=== PATIENT | female | born 1940 | race Caucasian/White ===

== ENCOUNTER 2024-03-01 14:25 | Inpatient (IN) | payer MEDICARE, OTHER ==
[~2024-03-01] VITALS: Ht 158.8 cm; Wt 76.7 kg
[2024-03-01 15:10] LABS: BASOPHILS % (AUTO) 0.5 % (0.0-2.0); EOSINOPHILS # (AUTO) 0.1 K/uL (0.0-0.7); EOSINOPHILS % (AUTO) 1.6 % (0.0-6.0); HEMATOCRIT 36 % (33-45); HEMOGLOBIN 11.7 g/dL (11.5-14.8); LYMPHOCYTES # (AUTO) 1.9 K/uL (0.8-4.8); LYMPHOCYTES % (AUTO) 26.6 % (20.0-44.0); MEAN CORPUSCULAR HEMOGLOBIN 30 PG (26.0-33.0); MEAN CORPUSCULAR HGB CONC 33 g/dl (31.0-36.0); MEAN CORPUSCULAR VOLUME 91 fL (82-100); MONOCYTES # (AUTO) 0.6 K/uL (0.1-1.30); MONOCYTES % (AUTO) 7.7 % (2.0-12.0); NEUTROPHILS # (AUTO) 4.6 K/uL (1.8-8.9); NEUTROPHILS % (AUTO) 63.6 % (43.0-81.0); PLATELET COUNT (AUTO) 327 K/uL (150-450); RED BLOOD CELL COUNT(AUTO) 3.93 MIL/uL (4.0-5.2); RED CELL DISTRIBUTION WIDTH 15.7 % (11.5-15.0); WHITE BLOOD COUNT (AUTO) 7.3 K/uL (4.3-11.0)
[2024-03-01 15:18] LABS: CALCIUM, SERUM 9.8 mg/dL (8.5-10.1); CARBON DIOXIDE 25 mmol/L (21-32); CHLORIDE 101 mmol/L (98-107); CREATININE 1.1 mg/dL (0.6-1.3); GLUCOSE 172 mg/dL (74-106); POTASSIUM 3.9 mmol/L (3.5-5.1); SODIUM SERUM 134 mmol/L (136-145); UREA NITROGEN, BLOOD 15 mg/dL (7-18)
[2024-03-01] MEDS: ASPIRIN EC 325 MG TABLET.DR PO ONE (16:44)
[2024-03-01] MEDS ORDERED: MORPHINE SULFATE INJ 4 MG/ML DISP.SYRIN ONE (16:58)
[2024-03-01] MEDS ORDERED: ONDANSETRON HCL/PF 4 MG/2 ML VIAL ONE (16:58)
[2024-03-01] MEDS: MORPHINE SULFATE INJ 2 MG/ML DISP.SYRIN IV ONE (17:00)
[2024-03-01] MEDS: ONDANSETRON HCL/PF 4 MG/2 ML VIAL IVP ONE (17:00)
[2024-03-01] MEDS ORDERED: AZEL6DRO5 EACHEYE (17:28)
[2024-03-01] MEDS ORDERED: METF-440 PO (17:28)
[2024-03-01] MEDS ORDERED: MEMA10TA56 PO (17:28)
[2024-03-01] MEDS ORDERED: MULT-1168 PO (17:28)
[2024-03-01] MEDS ORDERED: TIZA-180 PO (17:28)
[2024-03-01] MEDS ORDERED: METO5TAB2 PO (17:28)
[2024-03-01] MEDS ORDERED: OMEP40CA21 PO (17:28)
[2024-03-01] MEDS ORDERED: LOSA25TA27 PO (17:28)
[2024-03-01] MEDS ORDERED: GABA300C PO (17:28)
[2024-03-01] MEDS ORDERED: METO25TA4 PO (17:28)
[2024-03-01] MEDS ORDERED: HYDR-3976 PO (17:28)
[2024-03-01] MEDS ORDERED: SUCR1ORA6 PO (17:28)
[2024-03-01] MEDS ORDERED: DIPH1TAB PO (17:28)
[2024-03-01] MEDS ORDERED: DOCU250C14 PO (17:28)
[2024-03-01] MEDS ORDERED: DONE5TAB34 PO (17:28)
[2024-03-01] MEDS ORDERED: ASCO100058 PO (17:28)
[2024-03-01] MEDS ORDERED: CETI10TA14 PO (17:28)
[2024-03-01] MEDS ORDERED: OMEG-178 PO (17:28)
[2024-03-01] MEDS ORDERED: HYDR-4076 PO (17:28)
[2024-03-01] MEDS ORDERED: FURO20TA4 PO (17:28)
[2024-03-01] MEDS ORDERED: DEXTROSE 50%-WATER 50 ML DISP.SYRIN IV PRN (18:30)
[2024-03-01] MEDS ORDERED: MAGNESIUM HYDROXIDE 30 ML UDC PO PRN (18:30)
[2024-03-01] MEDS ORDERED: Z GUARD REMEDY 4 OZ OINT TP PRN (18:30)
[2024-03-01] MEDS: ENOXAPARIN SODIUM 40 MG/0.4 ML DISP.SYRIN SQ SCH (18:30)
[2024-03-01 21:10] VITALS: BP 140/89; TEMP 97.5; O2SAT 95
[2024-03-01] MEDS: DONEPEZIL 5 MG TABLET PO SCH (21:54)
[2024-03-01] MEDS: GABAPENTIN 300 MG CAPSULE PO SCH (21:56)
[2024-03-01] MEDS: BLOOD SUGAR DIAGNOSTIC 1 EACH STRIP IN SCH (22:05)
[2024-03-01] MEDS: ONDANSETRON HCL/PF 4 MG/2 ML VIAL IVP PRN (22:09)
[2024-03-01] MEDS: HYDROCODONE/APAP 5/325MG TABLET PO PRN (22:41)
[2024-03-01] MEDS: INSULIN REGULAR, HUMAN 100 UNIT/ML 3 ML VIAL SQ PRN (22:49)
[2024-03-02] VITALS (8 sets, daily range): BP systolic 114–162; BP diastolic 55–73; TEMP 97.7–98.4; O2SAT 95–99
[2024-03-02] MEDS: ACETAMINOPHEN 325 MG TABLET PO PRN (00:36)
[2024-03-02 07:18] LABS: BASOPHILS # (AUTO) 0.1 K/uL (0.0-0.2); BASOPHILS % (AUTO) 0.7 % (0.0-2.0); EOSINOPHILS # (AUTO) 0.2 K/uL (0.0-0.7); EOSINOPHILS % (AUTO) 2.5 % (0.0-6.0); HEMATOCRIT 33 % (33-45); HEMOGLOBIN 10.8 g/dL (11.5-14.8); LYMPHOCYTES # (AUTO) 3.4 K/uL (0.8-4.8); LYMPHOCYTES % (AUTO) 41.9 % (20.0-44.0); MEAN CORPUSCULAR HEMOGLOBIN 31 PG (26.0-33.0); MEAN CORPUSCULAR HGB CONC 33 g/dl (31.0-36.0); MEAN CORPUSCULAR VOLUME 92 fL (82-100); NEUTROPHILS # (AUTO) 3.4 K/uL (1.8-8.9); NEUTROPHILS % (AUTO) 42.9 % (43.0-81.0); PLATELET COUNT (AUTO) 287 K/uL (150-450); RED BLOOD CELL COUNT(AUTO) 3.53 MIL/uL (4.0-5.2); RED CELL DISTRIBUTION WIDTH 15.8 % (11.5-15.0)
[2024-03-02 07:48] LABS: CALCIUM, SERUM 8.9 mg/dL (8.5-10.1); CARBON DIOXIDE 24 mmol/L (21-32); CHLORIDE 101 mmol/L (98-107); CREATININE 1.3 mg/dL (0.6-1.3); GLUCOSE 137 mg/dL (74-106); MAGNESIUM 2.3 mg/dL (1.8-2.4); PHOSPHORUS 3.8 mg/dL (2.5-4.9); POTASSIUM 3.9 mmol/L (3.5-5.1); SODIUM SERUM 138 mmol/L (136-145); UREA NITROGEN, BLOOD 16 mg/dL (7-18)
[2024-03-02] MEDS: SUCRALFATE 1 G TABLET PO SCH (08:46)
[2024-03-02] MEDS: ASCORBIC ACID 500 MG TABLET PO SCH (08:46)
[2024-03-02] MEDS: PANTOPRAZOLE 40 MG TABLET.DR PO SCH (08:46)
[2024-03-02] MEDS: MULTIVIT W/MINERALS 1 TAB TABLET PO SCH (08:46)
[2024-03-02] MEDS: DOCUSATE SODIUM 250 MG CAPSULE PO SCH (08:46)
[2024-03-02] MEDS: ASPIRIN EC 81 MG TABLET.DR PO SCH (08:47)
[2024-03-02] MEDS: LOSARTAN POTASSIUM 25 MG TABLET PO SCH (08:47)
[2024-03-02] MEDS: MEMANTINE HCL 5 MG TABLET PO SCH (08:47)
[2024-03-02] MEDS: METOPROLOL SUCCINATE 25 MG TAB.SR.24H PO SCH (08:48)
[2024-03-02] MEDS ORDERED: Medication Not On Formulary EA (Azelastine Hcl 1 DROP) EACHEYE SCH (09:00)
[2024-03-02] MEDS ORDERED: FUROSEMIDE 20 MG TABLET PO SCH (09:00)
[2024-03-02 11:36] LABS: CHOLESTEROL 318 mg/dL (<200); HDL CHOLESTEROL 47 mg/dL (40-60); LDL 201 mg/dL (0-99); TRIGLYCERIDES 331 mg/dL (30-150)
[2024-03-02 12:04] LABS: THYROID STIMULATING HORMONE 1.54 uIU/mL (0.358-3.74)
== END 2024-03-02 17:43 | disposition home or self-care (01) | DRG 206 ==
LOC: ER 14:26 → TELE 20:39 → MED 03-02 09:24
PROVIDERS: ADMIT Nurse Practitioner Family; ATTEND Nurse Practitioner Family
DX: M94.0 Chondrocostal junction syndrome [Tietze] (principal); E87.1 Hypo-osmolality and hyponatremia; I11.0 Hypertensive heart disease with heart failure; E11.42 Type 2 diabetes mellitus with diabetic polyneuropathy; K21.9 Gastro-esophageal reflux disease without esophagitis; Z88.8 Allergy status to other drugs, medicaments and biological substances; E78.5 Hyperlipidemia, unspecified; Z88.1 Allergy status to other antibiotic agents; Z79.84 Long term (current) use of oral hypoglycemic drugs; Z79.899 Other long term (current) drug therapy; I50.9 Heart failure, unspecified; F03.90 Unspecified dementia, unspecified severity, without behavioral disturbance, psychotic disturbance, mood disturbance, and anxiety; Z82.49 Family history of ischemic heart disease and other diseases of the circulatory system
CPT/HCPCS: 36415; 71045-TC; 80048-TC; 80061-TC; 82962-TC; 83735-TC; 84100-TC; 84439-TC; 84443-TC; 84484-TC; 85025-TC; 93307-TC; G0378; J1650; J1815; J2270; J2405